=== PATIENT | male | born 1990 | race Caucasian/White ===

== ENCOUNTER 2017-04-05 09:16 | Day surgery (SDC) | payer MEDICAID ==
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
[2017-04-05] MEDS ORDERED: BUPIVACAINE 0.5% 30 ML SDV ONE ×2 (09:19→09:53)
--- NOTE | 2017-04-05 09:48 | PDHPUP ---
History & Physical Update H&P update statement: This history and physical update is based on an assessment of the patient which was completed after admission or registration (within 24 hours), but prior to the surgery/procedure. H&P update: H&P reviewed & patient examined, no change in patient's condition since H&P completed
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
[2017-04-05] MEDS ORDERED: MIDAZOLAM 2 MG/2 ML VIAL ONE (10:03)
[2017-04-05] MEDS ORDERED: PROPOFOL 200 MG/20 ML VIAL ONE (10:04)
[2017-04-05] MEDS ORDERED: fentaNYL 100 MCG/2 ML INJ ONE ×2 (10:04→11:36)
[2017-04-05] MEDS ORDERED: LR 1,000 ML IV ONE (10:04)
[2017-04-05] MEDS ORDERED: METOCLOPRAMIDE 10 MG/2 ML VIAL ONE (10:05)
[2017-04-05] MEDS ORDERED: ONDANSETRON 4 MG/2 ML VIAL ONE (10:05)
[2017-04-05] MEDS ORDERED: LIDOCAINE 2% JELLY 5 ML TUBE ONE (10:05)
[2017-04-05] MEDS ORDERED: ceFAZolin 2 GM/DEXTROSE 100 ML IV ONE (10:10)
[2017-04-05] MEDS ORDERED: CEFAZOLIN 2 GM/DEXTROSE/100 ML BAG IV ONE (10:11)
--- NOTE | 2017-04-05 11:01 | POSTOPPROG ---
Post Op Note Date of Operation: 04/05/17 Surgeon: Rd Garcia Anesthesiologist: jesús Anesthesia: GET(General Endotracheal) Pre-op Diagnosis: displaced 4th prox phalynx fx Post-op Diagnosis: same Procedure: ORIF 4th finger Inf/Abcess present in the surg proc area at time of surgery?: No EBL: Minimal (non) Complications: none
[2017-04-05] MEDS ORDERED: LR 500 ML IV PRN (11:09)
[2017-04-05] MEDS ORDERED: PROMETHAZINE HCL 25 MG/ML INJ IVP PRN (11:09)
[2017-04-05] MEDS ORDERED: NALOXONE HCL 0.4 MG/ML INJ IVP PRN (11:09)
[2017-04-05] MEDS ORDERED: fentaNYL 100 MCG/2 ML INJ IVP PRN (11:09)
--- NOTE | 2017-04-05 11:10 | POSTANESTH ---
Post Anesthetic Evaluation Cardiovascular Status: Normal, Stable Respiratory Status: Normal, Stable Level of Consciousness/Mental Status: Can Participate in Eval Pain Control: Adequate, Prn Tx Ordered Nausea/Vomiting Control: Adequate, Prn Tx Ordered Complications Possibly Related to Anesthesia: None Noted
[2017-04-05 11:22] VITALS: TEMP 97.5
[2017-04-05] MEDS ORDERED: oxyCODONE IR 5 MG TAB PO ONE (11:45)
[2017-04-05] MEDS ORDERED: oxyCODONE IR 5 MG TAB ONE (12:04)
[2017-04-05 12:14] VITALS: BP 106/60; RESP 16
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
[2017-04-05 12:55] VITALS: PULSE 53; O2SAT 94
== END 2017-04-05 12:45 | disposition home or self-care (01) ==
LOC: FSGY 09:16
PROVIDERS: ATTEND Orthopaedic Surgery
PROC: 0PST04Z Reposition Right Finger Phalanx with Internal Fixation Device, Open Approach (ICD-10-PCS; principal; 2017-04-05 10:45)
DX: S62.614A Displaced fracture of proximal phalanx of right ring finger, initial encounter for closed fracture (principal); M79.641 Pain in right hand; W50.0XXA Accidental hit or strike by another person, initial encounter
CPT/HCPCS: C1713; J0690; J2250; J2405; J2704; J2765; J3010

== ENCOUNTER 2018-01-27 19:01 | Emergency (ER) | payer MEDICAID ==
[2018-01-27 19:08] VITALS: BP 119/71
[2018-01-27] MEDS ORDERED: IBUPROFEN 600 MG TAB PO ONE (19:12)
[2018-01-27] MEDS ORDERED: CYCLOBENZAPRINE 10 MG TAB PO ONE (19:21)
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
[2018-01-27] MEDS ORDERED: LIDOCAINE 4%/MENTHOL 1% PATCH TD ONE (19:22)
[2018-01-27] MEDS ORDERED: PATCH REMOVAL 1 EA PATCH TD SCH (21:00)
== END 2018-01-27 19:58 | disposition home or self-care (01) ==
DX: S20.212A Contusion of left front wall of thorax, initial encounter (principal); M94.0 Chondrocostal junction syndrome [Tietze]; F17.200 Nicotine dependence, unspecified, uncomplicated; W22.8XXA Striking against or struck by other objects, initial encounter; Y99.8 Other external cause status; Y93.83 Activity, rough housing and horseplay

== ENCOUNTER 2019-01-17 02:10 | Emergency (ER) | payer MEDICAID | END 2019-01-17 07:06 | disposition home or self-care (01) ==